=== PATIENT | female | born 1980 | race Caucasian/White ===

== ENCOUNTER 2022-09-23 08:54 | Outpatient (OUT) | payer BC, SELFPAY ==
--- NOTE | 2022-09-23 08:58 | MM_ITS ---
Patient: CHEKO BERGER Exam Date: 09/23/2022 : 1980 Gender:F Ordering : DR. SMITA PATRICK D.O. Admission #: [id number] Family : Order #: [id number] CLICK HERE TO VIEW EXAM RADIOLOGY REPORT PROCEDURE: MM TOMOSYNTHESIS DIAGNOSTIC BI, 09/23/2022, 08:45 US BREAST LT LIMITED, 09/23/2022, 09:31 COMPARISON: MG MAMM DX 3D LT CAD, 03/09/2022. MG MAMM SCREEN 3D CORBIN CAD, 09/04/2021. US BREAST LEFT LIMITED, 03/09/2022. INDICATIONS: Abnormal Mammogram Calculator Name NCI Breast Cancer Risk Assessment Tool 5 Year Breast Cancer Risk 0.60% Lifetime Breast Cancer Risk 8.90% Personal Breast Cancer No Personal Ovarian Cancer No Treatments None Family Cancers Aunt-maternal with breast cancer at age 39; Grandfather-paternal with stomach cancer at age ~73; Grandmother-maternal with multiple myeloma cancer at age 85. LOCATION: [facility] BREAST COMPOSITION: Heterogeneously dense,which may obscure small masses. FINDINGS: DIAGNOSTIC CATEGORY 2--BENIGN FINDING: RIGHT BREAST: No significant suspicious finding. No significant change has occurred. LEFT BREAST: Stable partially circumscribed cysts versus masses within lower-inner quadrant on today's mammogram. Ultrasound evaluation demonstrates a benign-appearing 1.5 cm cyst at the 7 o'clock position 2.8 cm from the nipple and a benign-appearing 0.6 cm cyst 1.2 cm from the nipple. Slight decrease in size of a hypoechoic 0.7 x 0.6 x 0.3 cm slightly heterogeneous area at 8 o'clock position which may represent a collection of small cysts. RECOMMENDATIONS: ROUTINE MAMMOGRAM AND CLINICAL EVALUATION IN 12 MONTHS. PLEASE NOTE: A NORMAL MAMMOGRAM DOES NOT EXCLUDE THE POSSIBILITY OF BREAST CANCER. A CLINICALLY SUSPICIOUS PALPABLE LUMP SHOULD BE BIOPSIED. Dictated by: Jean-Claude Porter M.D. on 09/23/2022 at 10:12 Approved by: Jean-Claude Porter M.D. on 09/23/2022 at 11:21
== END 2022-09-23 08:55 | disposition home or self-care (01) ==
PROVIDERS: PCP Family Medicine; Visit Provider Obstetrics & Gynecology
DX: R92.8 Other abnormal and inconclusive findings on diagnostic imaging of breast (principal); Z80.3 Family history of malignant neoplasm of breast; Z80.0 Family history of malignant neoplasm of digestive organs; Z80.7 Family history of other malignant neoplasms of lymphoid, hematopoietic and related tissues
CPT/HCPCS: 76642; 77066; G0279

== ENCOUNTER 2023-10-19 10:54 | Outpatient (OUT) | payer BC, SELFPAY ==
--- NOTE | 2023-10-19 10:55 | MM_ITS ---
Patient Name: CHEKO BERGER MR#: [id number] : 1980 Exam Date: 10/19/2023 Ordering Doctor: DR. SMITA PATRICK D.O. RADIOLOGY REPORT PROCEDURE: MM TOMOSYNTHESIS SCREENING BI COMPARISON: MG MAMM DX 3D LT CAD, 03/09/2022. MM TOMOSYNTHESIS DIAGNOSTIC BI, 09/23/2022. INDICATIONS: Screening Calculator Name NCI Breast Cancer Risk Assessment Tool 5 Year Breast Cancer Risk 0.60% Lifetime Breast Cancer Risk 8.80% Personal Breast Cancer No Personal Ovarian Cancer No Treatments None Family Cancers Aunt-maternal with breast cancer at age 39; Grandfather-paternal with stomach cancer at age ~73; Grandmother-maternal with multiple myeloma cancer at age 85; Aunt-maternal with stomach cancer at age ~68. LOCATION: [facility] BREAST COMPOSITION: The breasts are heterogeneously dense,which may obscure small masses. FINDINGS: DIAGNOSTIC CATEGORY 2--BENIGN FINDING. NO CHANGE FROM COMPARISON. Scattered benign-appearing calcifications are present. Scattered benign-appearing lymph nodes are present. RIGHT BREAST: No significant suspicious finding. LEFT BREAST: No significant suspicious finding. RECOMMENDATIONS: ROUTINE MAMMOGRAM AND CLINICAL EVALUATION IN 12 MONTHS. PLEASE NOTE: A NORMAL MAMMOGRAM DOES NOT EXCLUDE THE POSSIBILITY OF BREAST CANCER. A CLINICALLY SUSPICIOUS PALPABLE LUMP SHOULD BE BIOPSIED. Dictated by: Сергей Clark MD on 10/19/2023 at 12:41 Approved by: Сергей Clark MD on 10/19/2023 at 12:42
== END 2023-10-19 10:55 | disposition home or self-care (01) ==
LOC: MAMMO 10:54
PROVIDERS: PCP Family Medicine; Visit Provider Obstetrics & Gynecology
DX: Z12.31 Encounter for screening mammogram for malignant neoplasm of breast (principal); Z80.3 Family history of malignant neoplasm of breast; Z80.0 Family history of malignant neoplasm of digestive organs; Z80.7 Family history of other malignant neoplasms of lymphoid, hematopoietic and related tissues
CPT/HCPCS: 77063; 77067

== ENCOUNTER 2024-10-24 13:30 | Outpatient (OUT) | payer BC, SELFPAY ==
--- NOTE | 2024-10-24 13:32 | MM_ITS ---
Patient Name: CHEKO BERGER MR#: [id number] : 1980 Exam Date: 10/24/2024 Ordering Doctor: DR. SMITA PATRICK D.O. RADIOLOGY REPORT PROCEDURE: MM TOMOSYNTHESIS SCREENING BI COMPARISON: MM TOMOSYNTHESIS SCREENING BI, 10/19/2023. MM TOMOSYNTHESIS DIAGNOSTIC BI, 09/23/2022. MG MAMM SCREEN 3D CORBIN CAD, 09/04/2021. INDICATIONS: Screening Calculator Name NCI Breast Cancer Risk Assessment Tool 5 Year Breast Cancer Risk 0.70% Lifetime Breast Cancer Risk 8.70% Personal Breast Cancer No Personal Ovarian Cancer No Treatments None Family Cancers Aunt-maternal with breast cancer at age 39; Grandfather-paternal with stomach cancer at age ~73; Grandmother-maternal with multiple myeloma cancer at age 85; Aunt-maternal with stomach cancer at age ~68. LOCATION: [facility] BREAST COMPOSITION: The breasts are heterogeneously dense, which may obscure small masses. FINDINGS: DIAGNOSTIC CATEGORY 2--BENIGN FINDING. NO CHANGE FROM COMPARISON. LEFT BREAST: No significant suspicious finding. Benign-appearing calcifications are present. RIGHT BREAST: No significant suspicious finding. Benign-appearing calcifications are present. Benign-appearing lymph nodes in noted along the chest wall similar to the prior exam. RECOMMENDATIONS: ROUTINE MAMMOGRAM AND CLINICAL EVALUATION IN 12 MONTHS. Dictated by: Abdulaziz Atkinson MD on 10/24/2024 at 14:43 Approved by: Abdulaziz Atkinson MD on 10/24/2024 at 15:02
--- OUTSIDE RECORDS SUMMARY | 2024-10-24 18:05 | XMS_ITS | CCD ---
Author Organization [facility] Care Team Providers Care Cut Plug Packer Name Role Phone Suha Rowland Unavailable Allyn Franks Unavailable HEIDI MAIN Admitting Unavailable HEIDI MAIN Attending Unavailable JANETT, DR SUHA Muse Primary Care Unavailable JULIO CESAR, DR ANA Chou Consulting Unavailable HEIDI MAIN Consulting Unavailable HEIDI MAIN Admitting Unavailable HEIDI MAIN Attending Unavailable JANETT, DR SUHA Muse Primary Care Unavailable JULIO CESAR, DR ANA Chou Consulting Unavailable JANETT, DR SUHA Muse Consulting Unavailable HEIDI MAIN Consulting Unavailable JANETT, DR SUHA Muse Admitting Unavailable JANETT, DR SUHA Muse Attending Unavailable JANETT, DR SUHA Muse Primary Care Unavailable ART, DR ROSELYN Whitney Consulting Unavailable ROWLAND, DR SUHA Muse Consulting Unavailable ROWLAND, DR SUHA Muse Admitting Unavailable JANETT, DR SUHA Muse Attending Unavailable JANETT, DR SUHA Muse Primary Care Unavailable SUHA ROWLAND Primary Care Physician [phone] Janine KING Attending Unavailable Suha Rowland MD Primary Care Provider [phone] HEIDI MAIN Attending Unavailable HEIDI MAIN Attending Unavailable HEIDI MAIN Referring Unavailable Medications Current Medications Medication Drug Class(es) Dates Sig (Normalized) Sig (Original) azithromycin 250 mg oral tablet (1 source) Macrolide Antimicrobial Start: 06-01-2023 Azithromycin Active 250 MG PO daily 6 5 June 01, 2023 12:00am take 2 today and then 1 for the next 4 days Magnesium (3 sources) Start: 06-01-2023 take 200 mg by mouth once daily Magnesium Active 200 MG PO Daily June 01, 2023 12:00am Magnesium Active Multivitamin preparation (7 sources) Start: 06-01-2023 take 1 tablet by mouth once daily Multivitamin Active 1 TAB PO Daily June 01, 2023 12:00am take 1 tablet by mouth once henrietta y Multivitamin - 1 tablet Orally Once a day Active Completed/Discontinued Medications Medication Drug Class(es) Dates Sig (Normalized) Sig (Original) levonorgestrel 0.913093 mg/hr intrauterine system (14 sources) Progestin, Progestin-containi ng Intrauterine Device Start: 12-20-2023 End: 12-20-2023 Levonorgestrel intrauterine device 52 mg Start: 12-20-2023 End: 12-20-2023 52 mg, Intrauterine, Once, O n 12/20/23 at 0900, For 1 dose Start: 06-01-2023 Levonorgestrel (Mirena) 21 mcg/24 hours (8 yrs) 52 mg intrauterine device Active INTRAUTERI June 01, 2023 12:00am Levonorgestrel ( Mirena, 52 MG,) 20 MCG/DAY intrauterine device Mirena (52 MG) Active Mirena Active predniSONE 20 mg oral tablet (6 sources) Start: 03-26-2022 take 2 tablets by mouth every twenty-four hours predniSONE 20 MG 2 tablets Orally Once a day for 5 days Mar, Not-Taking tiZANidine 4 mg oral tablet (6 sources) Central alpha-2 Adrenergic Agonist Start: 03-17-2022 take 1 tablet by mouth every twelve hours tiZANidine HCl 4 MG 1 tablet as needed Orally bid for 15 days Feb, Not-Taking topiramate 25 mg oral tablet (6 sources) Start: 03-17-2022 take 1 tablet by mouth every twenty-four hours Topamax 25 MG 1 tablet Orally Once a day for 30 day(s) Feb, Not-Taking Problems Active Problems Problem Classification Problem Date Documented Date Episodic/Chronic Adjustment disorders (7 sources) Stress; Translations: [Reaction to severe stress, unspecified] Chronic Allergic reactions (1 source) Allergic contact dermatitis caused by plant material; Translations: [Allergic contact dermatitis due to plants, except food] Onset: 09-07-2022 Episodic Chronic obstructive pulmonary disease and bronchiectasis (2 sources) Bronchitis; Translations: [Bronchitis, not specified as acute or chronic] 06-01-2023 Episodic Contraceptive and procreative management (3 sources) Contraception status; Translations: [Encounter for removal and reinsertion of intrauterine contraceptive device] 12-14-2023 Episodic Other nutritional; endocrine; and metabolic disorders (1 source) Overweight in adulthood with body mass index of 25 or more but less than 30; Translations: [Body mass index (BMI) 26.0-26.9, adult] Onset: 09-07-2022 Episodic Pneumonia (except that caused by tuberculosis or sexually transmitted disease) (6 sources) Pneumonia due to Severe acute respiratory syndrome coronavirus; Translations: [Pneumonia due to Coronavirus disease 2019] Episodic Residual codes; unclassified (1 source) Family history of malignant neoplasm of breast; Translations: [FAMILY HX MALIG NEOPLASM OF BREAST] Onset: 03-15-2022 Episodic Residual codes; unclassified (1 source) Family history of malignant neoplasm of digestive organs; Translations: [FAM HX MALIG NEOPLASM DIGESTIV ORGN] Onset: 03-15-2022 Episodic Residual codes; unclassified (1 source) Family history of other malignant neoplasms of lymphoid, hematopoietic and related tissues; Translations: [FAM HX OTH MAL CINTHIA LYMPH HEMATPOETC] Onset: 03-15-2022 Episodic Spondylosis; intervertebral disc disorders; other back problems (5 sources) Cervical disc disorder; Translations: [Cervical disc disorder, unspecified, unspecified cervical region] Chronic Spondylosis; intervertebral disc disorders; other back problems (6 sources) Radiculopathy, cervical region; Translations: [RADICULOPATHY CERVICAL REGION] Onset: 05-03-2022 Episodic Past or Other Problems Problem Classification Problem Date Documented Da te Episodic/Chronic Nonmalignant breast conditions (1 source) Unspecified lump in the left breast, lower inner quadrant; Translations: [UNS LUMP IN LT BREAST LW INNER QUAD] Onset: 09-07-2021 Episodic Other screening for suspected conditions (not mental disorders or infectious disease) (14 sources) Mammography abnormal; Translations: [Other abnormal and inconclusive findings on diagnostic imaging of breast] Onset: 03-09-2022 Episodic Viral infection (6 sources) Disease caused by 2019-nCoV; Translations: [COVID-19] Results Test Name Value Interpretation Reference Range Facil ity HCG ( test) Ql (U)o n 12-20-2023 Preg Test, Ur Negative Negative [facility] I[facility] Insertionon 12-20-2023 Ashu Madrid 12/20/2023 9:10 AM IUD Insertion Performed by: Heidi Main DO Authorized by: Heidi Main DO Procedure: IUD removal and insertion Consent obtained by patient, parent, or legal power of trust and estates attorney - including discussion of procedure risks and benefits, patient questions answered, and patient education provided: yes Reason for removal: patient request Strings visualized: yes Cervix cleaned with: iodopovidone IUD grasped by forceps: yes IUD removed: yes Removed without complications: yes IUD intact: yes Pelvic exam performed: yes Speculum placed in vagina: yes Cervix cleaned and prepped: yes Tenaculum/Allis/Ring Forceps applied to cervix: yes Anesthesia used: no Uterus sound depth (cm): 6.5 IUD inserted without complications: yes OSM: 52 mg Levonorgestrel 20 MCG/DAY Strings trimmed to (cm): 4 Patient tolerated procedure well: yes Intended removal date: 8 years [facility] 09-08-2022 Consent [id number] Normal [facility] Family Medicine Office/Clini c Noteon 09-07-2022 Family Medicine Office/Clinic Note Chief Complaint HOOP CUTTER poison yvonne HPI Staff Pt 42 yo female presents with poison yvonne Symptom onset: 2 days ago Location: inner thighs, forehead, neck Characteristics at beginning: red bumps Characteristics now :blistering Itch/Pain: itchy Treatments: vinegar, cortisone spray, anti itch cream Ever had in past?: yes Change in soaps, detergents, exposures:no Allergies:no Fever: no History of Present Illness I have reviewed and verified the staff HPI to be accurate for this encounter. Patient presents in office for concern of poison yvonne rash. Rash x2 days. Patient states rash is present to inner thighs, forehead, neck. Rash is pruritic. Complains of blistering and red bumps. Has tried topical vinegar, cortisone spray, anti-itch cream with minimal improvement. Denies changes to lotions, soaps, medications. Denies others in household with similar rash. Denies fever. Was recently doing outdoor yard work. Review of Systems PHQ Score Initial Depression Screen Score: 0 Physical Exam Vitals & Measurements T: 36.8 ?C(Oral) HR: 65(Peripheral) BP: 120/82 SpO2: 97% HT: 62 in HT: 158 cm WT: 66.4 kg WT: 146.08 lb BMI: 26.6 General: Well developed, well nourished, in no acute distress Eyes: No current periorbital edema Lungs: Normal respiratory effort and clear to auscultation Cardio: regular rate and rhythm, no murmur Skin: Patient with erythematous maculopapular rash with some areas of blistering forming present to right side of neck, behind both the ears, left forehead, right upper cheek, bilateral inner thighs, left forearm. No active drainage. No significant edema or induration currently. Mental Status: Alert and oriented x3. Normal mood and affect Assessment/Plan 1. Contact dermatitis due to poison yvonne (L23.7: Allergic contact dermatitis due to plants, except food) Given exam, will treat with kenalog IM. Discussed typical duration of contact dermatitis anywhere from 7-21 days typically. Advised steroids of any kind do not make rash completely resolve but help with itching and inflammation. May continue topical calamine or similar. Follow up with PCP if not improving over next 10 days or significantly changing appearance. Patient and/or parent verbalized understanding of treatment plan. Ordered: triamcinolone, 80 mg = 2 mL, Injection, IntraMuscular, Once, Stop date 09/07/22 18:59:00 EDT, Routine, Start date 09/07/22 18:59:00 EDT, 09/07/22 18:59:00 EDT 2. BMI 26.0-26.9,adult (Z68.26: Body mass index [BMI] 26.0-26.9, adult) The standard range for ages 18 and older is >=18.5 and < 25 kg/m2. Your BMI today was above this range, this falls in the overweight to obese category and there are medical benefits to weight loss. We can offer counselling, referral, and/or medical support in addressing this problem. Your BMI and weight management will be followed at subsequent visits. Follow-up With When Contact Information SUHA ROWLAND MD, [address] [address]- Additional Instructions: Patient Education Contact Dermatitis, Ferh-xq-Orcp BMI for Adults Problem List/Past Medical History Ongoing No chronic problems Historical No qualifying data Medications No active medications Allergies No Known Allergies No Known Medication Allergies Social History Tobacco - Denies Tobacco Use, 09/07/2022 Never (less than 100 in lifetime) Tobacco Use:. Never Smokeless Tobacco Use:., 09/07/2022 Immunizations Vaccine Date Status Comments SARS-CoV-2 mRNA (tojean paul 5y-11y) vac - Not Given Postpone due to refusal Normal [facility] Comment on above: Result Comment: Elec tronically Signed By: Janine KING CNP\.demetri\Date and Time Signed: 09/07/22 19:19 EDT Patient Educationon 09-08-19 Patient Education Dermatology Contact Dermatitis Dermatitis is redness, soreness, and swelling (inflammation) of the skin. Contact dermatitis is a reaction to something that touches the skin. There are two types of contact dermatitis: ? Irritant contact dermatitis. This happens when something bothers (irritates) your skin, like soap. ? Allergic contact dermatitis. This is caused when you are exposed to something that you are allergic to, such as poison yvonne. What are the causes? ? Common causes of irritant contact dermatitis include: ? Makeup. ? Soaps. ? Detergents. ? Bleaches. ? Acids. ? Metals, such as nickel. ? Common causes of allergic contact dermatitis include: ? Plants. ? Chemicals. ? Jewelry. ? Latex. ? Medicines. ? Preservatives in products, such as clothing. What increases the risk? ? Having a job that exposes you to things that bother your skin. ? Having asthma or eczema. What are the signs or symptoms? Symptoms may happen anywhere the irritant has touched your skin. Symptoms include: ? Dry or flaky skin. ? Redness. ? Cracks. ? Itching. ? Pain or a burning feeling. ? Blisters. ? Blood or clear fluid draining from skin cracks. With allergic contact dermatitis, swelling may occur. This may happen in places such as the eyelids, mouth, or genitals. How is this treated? ? This condition is treated by checking for the cause of the reaction and protecting your skin. Treatment may also include: ? Steroid creams, ointments, or medicines. ? Antibiotic medicines or other ointments, if you have a skin infection. ? Lotion or medicines to help with itching. ? A bandage (dressing). Follow these instructions at home: Skin care ? Moisturize your skin as needed. ? Put cool cloths on your skin. ? Put a baking soda paste on your skin. Stir water into baking soda until it looks like a paste. ? Do not scratch your skin. ? Avoid having things rub up against your skin. ? Avoid the use of soaps, perfumes, and dyes. Medicines ? Take or apply wdnz-ikb-dladrae and prescription medicines only as told by your doctor. ? If you were prescribed an antibiotic medicine, take or apply it as told by your doctor. Do not stop using it even if your condition starts to get better. Bathing ? Take a bath with: ? Epsom salts. ? Baking soda. ? Colloidal oatmeal. ? Bathe less often. ? Bathe in warm water. Avoid using hot water. Bandage care ? If you were given a bandage, change it as told by your doctor. ? Wash your hands with soap and water before and after you change your bandage. If soap and water are not available, use hand specialist physicians. General instructions ? Avoid the things that caused your reaction. If you do not know what caused it, keep a journal. Write down: ? What you eat. ? What skin products you use. ? What you drink. ? What you wear in the area that has symptoms. This includes jewelry. ? Check the affected areas every day for signs of infection. Check for: ? More redness, swelling, or pain. ? More fluid or blood. ? Warmth. ? Pus or a bad smell. ? Keep all follow-up visits as told by your doctor. This is important. Contact a doctor if: ? You do not get better with treatment. ? Your condition gets worse. ? You have signs of infection, such as: ? More swelling. ? Tenderness. ? More redness. ? Soreness. ? Warmth. ? You have a fever. ? You have new symptoms. Get help right away if: ? You have a very bad headache. ? You have neck pain. ? Your neck is stiff. ? You throw up (vomit). ? You feel very sleepy. ? You see red streaks coming from the area. ? Your bone or joint near the area hurts after the skin has healed. ? The area turns darker. ? You have trouble breathing. Summary ? Dermatitis is redness, soreness, and swelling of the skin. ? Symptoms may occur where the irritant has touched you. ? Treatment may include medicines and skin care. ? If you do not know what caused your reaction, keep a journal. ? Contact a doctor if your condition gets worse or you have signs of infection. This information is not intended to replace advice given to you by your health care provider. Make sure you discuss any questions you have with your health care provider. Document Revised: 11/23/2021 Document Reviewed: 11/23/2021 [employer] Patient Education ? 2022 [employer] Nutrition BMI for Adults What is BMI? Body mass index (BMI) is a number that is calculated from a person's weight and height. BMI can help estimate how much of a person's weight is composed of fat. BMI does not measure body fat directly. Rather, it is an alternative to procedures that directly measure body fat, which can be difficult and expensive. BMI can help identify people who may be at higher risk for certain medical problems. What are BMI measurements used for? BMI is used as a screening tool to identify possible weight problems. It helps determine w (more content not included)... Normal [facility] CON EXAMINATION: MRI [facility] CON HISTORY: Cervical radiculopathy COMPARISON: No relevant comparison available. TECHNIQUE: A variety of imaging planes and parameters were utilized for visualization of suspected pathology. FINDINGS: CRANIOCERVICAL AREA: Normal foramen magnum with no Chiari malformation. PARASPINAL AREA: Normal with no visible mass. BONES: Straightening of normal lordotic curvature extending from C2 through C6. CORD: Normal caliber, contour, and signal intensity. CERVICAL DISC LEVELS: C2-C3: Early degenerative disc disease is present without focal protrusion or neural impingement. C3-C4: Early degenerative disc disease is present without focal protrusion or neural impingement. C4-C5: Early degenerative disc disease is present without focal protrusion or neural impingement. C5-C6: Mild central canal narrowing. Moderate-marked right foramen and mild left foramen narrowing. Moderate diffuse disc bulging with broad-based protrusion projecting 3 mm into right foramen. No significant disc height reduction or degenerative facet arthropathy. C6-C7: Early degenerative disc disease is present without focal protrusion or neural impingement. C7-T1:. No significant disc/facet abnormality, spinal stenosis, or foraminal stenosis. IMPRESSION: 1. Moderate or slightly greater narrowing of the C5-6 right neuroforamen secondary to mild diffuse disc bulging and prominent right foraminal disc herniation of the protrusion type. 2. Straightening of normal lordotic curvature, positioning versus muscle spasm. Electronically authenticated by: ROSELYN CORDOVA Date: 2022-05-03 12:44 Normal [facility] MRI [facility] [employer] Other MG MAMM DX 3D LT CADon 03-09 MG MAMM DX 3D LT CAD Patient: CHEKO BERGER Exam Date: 03/09/2022 : 1980 Gender:F Ordering : DR. HEIDI MAIN D.O. Admission #: [id number] Family : Order #: [id number] CLICK HERE TO VIEW EXAM RADIOLOGY REPORT PROCEDURE: MAMMOGRAM DIAGNOSTIC 3D LEFT CAD, 03/09/2022, 10:08 ULTRASOUND BREAST LEFT LIMITED, 03/09/2022, 10:37 COMPARISON: US BREAST LEFT LIMITED, 09/04/2021. MG MAMM SCREEN 3D CORBIN CAD, 09/04/2021. INDICATIONS: Abnormal findings on diagnostic imaging of breast Calculator Name NCI Breast Cancer Risk Assessment Tool 5 Year Breast Cancer Risk 0.50% Lifetime Breast Cancer Risk 9.00% Personal Breast Cancer No Personal Ovarian Cancer No Treatments None Family Cancers Aunt-maternal with breast cancer at age 39; Grandfather-paternal with stomach cancer at age 73; Grandmother-maternal with multiple myeloma cancer at age 85. LOCATION: [facility] BREAST COMPOSITION: Heterogeneously dense, which may obscure small masses. FINDINGS: DIAGNOSTIC CATEGORY 3--PROBABLY BENIGN FINDING. THE FOLLOWING FINDING(S) HAS A HIGH PROBABILITY OF A BENIGN ETIOLOGY: The left breast is stable in size and overall fibroglandular configuration with stable scattered nodules. No new areas of suspicious microcalcifications, architectural distortion or mass. Ultrasound demonstrates 2 areas of anechoic echogenicity in the left breast at the 7 o'clock position having imperceptible borders and increased acoustic through transmission consistent with simple cysts. A lesion at the 8 o'clock position is mildly lobular with internal echoes but no definite vascularity measuring 8.3 x 4.3 x 7.4 mm. This is stable from the prior exam. Findings were discussed with the patient and 1 additional follow-up mammogram and ultrasound in 6 months to ensure stability at 1 year was recommended. The patient will be due a mammogram of the right breast at that time RECOMMENDATIONS: SHORT TERM FOLLOW-UP DIAGNOSTIC MAMMOGRAM BILATERAL BREASTS IN 6 MONTHS. SHORT TERM FOLLOW-UP ULTRASOUND LEFT BREAST IN 6 MONTHS. PLEASE NOTE: A NORMAL MAMMOGRAM DOES NOT EXCLUDE THE POSSIBILITY OF BREAST CANCER. A CLINICALLY SUSPICIOUS PALPABLE LUMP SHOULD BE BIOPSIED. Dictated by: Ana Clark MD on 03/09/2022 at 10:53 Approved by: Ana Clark MD on 03/09/2022 at 11:01 Normal [facility] US BREAST LEFT LIMITEDon US BREAST LEFT LIMITED Patient: CHEKO BERGER Exam Date: 03/09/2022 : 1980 Gender:F Ordering : DR. HEIDI MAIN D.O. Admission #: [id number] Family : Order #: [id number] CLICK HERE TO VIEW EXAM RADIOLOGY REPORT PROCEDURE: MAMMOGRAM DIAGNOSTIC 3D LEFT CAD, 03/09/2022, 10:08 ULTRASOUND BREAST LEFT LIMITED, 03/09/2022, 10:37 COMPARISON: US BREAST LEFT LIMITED, 09/04/2021. MG MAMM SCREEN 3D CORBIN CAD, 09/04/2021. INDICATIONS: Abnormal findings on diagnostic imaging of breast Calculator Name NCI Breast Cancer Risk Assessment Tool 5 Year Breast Cancer Risk 0.50% Lifetime Breast Cancer Risk 9.00% Personal Breast Cancer No Personal Ovarian Cancer No Treatments None Family Cancers Aunt-maternal with breast cancer at age 39; Grandfather-paternal with stomach cancer at age 73; Grandmother-maternal with multiple myeloma cancer at age 85. LOCATION: [facility] BREAST COMPOSITION: Heterogeneously dense, which may obscure small masses. FINDINGS: DIAGNOSTIC CATEGORY 3--PROBABLY BENIGN FINDING. THE FOLLOWING FINDING(S) HAS A HIGH PROBABILITY OF A BENIGN ETIOLOGY: The left breast is stable in size and overall fibroglandular configuration with stable scattered nodules. No new areas of suspicious microcalcifications, architectural distortion or mass. Ultrasound demonstrates 2 areas of anechoic echogenicity in the left breast at the 7 o'clock position having imperceptible borders and increased acoustic through transmission consistent with simple cysts. A lesion at the 8 o'clock position is mildly lobular with internal echoes but no definite vascularity measuring 8.3 x 4.3 x 7.4 mm. This is stable from the prior exam. Findings were discussed with the patient and 1 additional follow-up mammogram and ultrasound in 6 months to ensure stability at 1 year was recommended. The patient will be due a mammogram of the right breast at that time RECOMMENDATIONS: SHORT TERM FOLLOW-UP DIAGNOSTIC MAMMOGRAM BILATERAL BREASTS IN 6 MONTHS. SHORT TERM FOLLOW-UP ULTRASOUND LEFT BREAST IN 6 MONTHS. PLEASE NOTE: A NORMAL MAMMOGRAM DOES NOT EXCLUDE THE POSSIBILITY OF BREAST CANCER. A CLINICALLY SUSPICIOUS PALPABLE LUMP SHOULD BE BIOPSIED. Dictated by: Ana Clark MD on 03/09/2022 at 10:53 Approved by: Ana Clark MD on 03/09/2022 at 11:01 Normal [facility] MAMM SCREEN 3D CORBIN CADon 09-04-2021 MG MAMM SCREEN 3D CORBIN CAD Patient: CHEKO BERGER Exam Date: 09/04/2021 : 1980 Gender:F Ordering : DR. HEIDI MAIN D.O. Admission #: [id number] Family : DR SUHA ROWLAND M.D. Order #: [id number] CLICK HERE TO VIEW EXAM RADIOLOGY REPORT PROCEDURE: MAMMOGRAM SCREENING 3D BILATERAL CAD COMPARISON: None. INDICATIONS: Screening mammography Calculator Name NCI Breast Cancer Risk Assessment Tool 5 Year Breast Cancer Risk 0.50% Lifetime Breast Cancer Risk 9.00% Personal Breast Cancer No Personal Ovarian Cancer No Treatments None Family Cancers Aunt-maternal with breast cancer at age 39; Grandfather-paternal with stomach cancer at age 73; Grandmother-maternal with multiple myeloma cancer at age 85. LOCATION: [facility] BREAST COMPOSITION: Heterogeneously dense,which may obscure small masses. FINDINGS: DIAGNOSTIC CATEGORY 0--INCOMPLETE: NEED ADDITIONAL IMAGING EVALUATION. Scattered benign-appearing calcifications are present. Scattered benign-appearing lymph nodes are present. RIGHT BREAST: No significant suspicious finding. LEFT BREAST: Focal lobular 1.6 x 1.2 x 1.1 cm nodule lower inner quadrant, posterior breast. Ultrasound follow-up recommended RECOMMENDATIONS: ULTRASOUND: LEFT BREAST PLEASE NOTE: A NORMAL MAMMOGRAM DOES NOT EXCLUDE THE POSSIBILITY OF BREAST CANCER. A CLINICALLY SUSPICIOUS PALPABLE LUMP SHOULD BE BIOPSIED. Dictated by: Ana Clark MD on 09/04/2021 at 10:50 Approved by: Ana Clark MD on 09/04/2021 at 11:29 Normal [facility] US BREAST LEFT LIMITEDon US BREAST LEFT LIMITED Patient: CHEKO BERGER Exam Date: 09/04/2021 : 1980 Gender:F Ordering : DR. HEIDI MAIN D.O. Admission #: [id number] Family : DR SUHA ROWLAND M.D. Order #: [id number] CLICK HERE TO VIEW EXAM RADIOLOGY REPORT PROCEDURE: ULTRASOUND BREAST LEFT LIMITED COMPARISON: MG MAMM SCREEN 3D CORBIN CAD, 09/04/2021. INDICATIONS: Mammography abnormal TECHNIQUE: Breast ultrasound was performed, with evaluation focusing only on specific areas of concern. FINDINGS: DIAGNOSTIC CATEGORY 3--PROBABLY BENIGN FINDING. THE FOLLOWING FINDING(S) HAS A HIGH PROBABILITY OF A BENIGN ETIOLOGY: Ultrasound of the left breast was performed demonstrating 3 cystic areas : Lesion 1: 7 o'clock position measures 1.2 x 0.6 x 1.1 cm in size with mildly lobular contours and increased acoustic through transmission. Simple cyst Lesion 2: 8 o'clock position. 0.9 x 0.4 x 0.8 cm. Mild scattered internal echoes. Complex cyst favored Lesion 3: 7 o'clock. 1.1 by 0.7 x 0.6 cm. Mildly lobular contour. No internal echoes. Increased acoustic through transmission, simple cyst The ultrasound lesions correspond in position but not completely in size to the mammographic findings. Six-month follow-up mammogram and ultrasound is recommended to document stability. RECOMMENDATIONS: SHORT TERM FOLLOW-UP ULTRASOUND LEFT BREAST IN 6 MONTHS. SHORT TERM FOLLOW-UP DIAGNOSTIC MAMMOGRAM LEFT BREAST IN 6 MONTHS. PLEASE NOTE: A NORMAL ULTRASOUND EXAMINATION DOES NOT EXCLUDE THE POSSIBILITY OF BREAST CANCER. A CLINICALLY SUSPICIOUS PALPABLE LUMP SHOULD BE BIOPSIED. Dictated by: Ana Clark MD on 09/04/2021 at 12:04 Approved by: Ana Clark MD on 09/04/2021 at 12:08 Normal [facility] Vital Signs Date Time Vital Sign Value Performing Clinician Facility 01-25-2024 14:10-0500 Body mass index (BMI) [Ratio] 21.3 kg/m2 Heidi Rinkes DO Work Phone: [facility] 01-25-2024 14:10-0500 Body weight 58.06 kg Heidi Rinkes DO Work Phone: [facility] 01-25-2024 14:10-0500 Diastolic blood pressure 70 mm[Hg] Heidi Rinkes DO Work Phone: [facility] 01-25-2024 14:10-0500 Systolic blood pressure 120 mm[Hg] Heidi Rinkes DO Work Phone: [facility] 12-20-2023 08:53-0400 Body mass index (BMI) [Ratio] 21.3 kg/m2 Heidi Rinkes DO Work Phone: [facility] 12-20-2023 08:53-0400 Body weight 58.06 kg Heidi Rinkes DO Work Phone: [facility] 12-20-2023 08:53-0400 Diastolic blood pressure 80 mm[Hg] Heidi Rinkes DO Work Phone: [facility] 12-20-2023 08:53-0400 Systolic blood pressure 120 mm[Hg] Heidi Rinkes DO Work Phone: [facility] 10-27-2023 13:03-0400 Body height 165.1 cm Heidi Rinkes DO Work Phone: [facility] 10-27-2023 13:03-0400 Body mass index (BMI) [Ratio] 21.3 kg/m2 Heidi Rinkes DO Work Phone: [facility] 10-27-2023 13:03-0400 Body weight 58.06 kg Heidi Rinkes DO Work Phone: [facility] 10-27-2023 13:03-0400 Diastolic blood pressure 70 mm[Hg] Heidi Rinkes DO Work Phone: [facility] 10-27-2023 13:03-0400 Systolic blood pressure 130 mm[Hg] Heidi Rinkes DO Work Phone: [facility] 06-01-2023 13:02-0400 Body height 160.02 cm [facility] 06-01-2023 13:02-0400 Body mass index (BMI) [Ratio] 26.4 kg/m2 [facility] 06-01-2023 13:02-0400 Body weight 67.58 kg [facility] 06-01-2023 13:02-0400 Diastolic blood pressure 66 mm[Hg] [facility] 06-01-2023 13:02-0400 Heart rate 86 /min [facility] 06-01-2023 13:02-0400 SaO2% (BldA) [Mass fraction] 98 % [facility] 06-01-2023 13:02-0400 Systolic blood pressure 110 mm[Hg] [facility] 09-07-2022 18:39-0400 Blood Pressure Location Janine KING [facility] 09-07-2022 18:39-0400 Body temperature 98.24 [degF] Janine KING [facility] 09-07-2022 18:39-0400 Diastolic blood pressure 82 mm[Hg] Janine KING [facility] 09-07-2022 18:39-0400 Heart rate 65 /min Janine KING [facility] 09-07-2022 18:39-0400 SaO2% (BldA) [Mass fraction] 97 % Janine KING [facility] 09-07-2022 18:39-0400 Systolic blood pressure 120 mm[Hg] Janine KING [facility] 03-17-2022 12:30-0500 Body height 160.02 cm Suha Rowland Other [facility] Other 03-17-2022 12:30-0500 Body mass index (BMI) [Ratio] 26.39 kg/m2 Suha Rowland Other [facility] Other 03-17-2022 12:30-0500 Body weight 67.59 kg Suha Rowland Other [facility] Other 03-17-2022 12:30-0500 Diastolic blood pressure 76 mm[Hg] Suha Rowland Other [facility] Other 03-17-2022 12:30-0500 Systolic blood pressure 122 mm[Hg] Suha Rowland Other [facility] Other Encounters Encounter Date Encounter Type Care Provider Facility Start: 01-25-2024 End: 01-25-2024 Office outpatient visit 15 minutes Heidi Main DO Work Phone: [facility] Comment on above: Intrauterine device surveillance Start: 12-20-2023 End: 12-20-2023 Patient encounter procedure Heidi Main DO Work Phone: [facility] Comment on above: Encounter for IUD re moval and reinsertion Start: 12-20-2023 End: 12-20-2023 ambulatory [facility] Not Available Start: 10-27-2023 End: 10-27-2023 Patient encounter status Heidi Main DO Work Phone: [facility] Start: 10-27-2023 End: 10-27-2023 Periodic preventive med est patient 40-64yrs Heidi Main DO Work Phone: [facility] Comment on above: Encounter for gyneco logical examination without abnormal finding; Screening for malignant neoplasm of cervix; Encounter for screening mammogram for breast cancer Start: 10-27-2023 End: 10-27-2023 ambulatory [facility] Not Available Start: 06-01-2023 End: 06-01-2023 ambulatory [facility] Work Phone: Start: 06-01-2023 End: 06-01-2023 Patient encounter procedure [facility] Work Phone: Start: 09-08-2022 End: 09-08-2022 ambulatory Suha Rowland Other [facility] Other Start: 09-08-2022 Telephone encounter Suha Rowland [facility] Start: 09-07-2022 End: 09-08-2022 ambulatory Janine KING Facility:[facility] Start: 09-07-2022 End: 09-07-2022 Patient encounter procedure Janine KING [facility] Start: 05-20-2022 End: 05-20-2022 ambulatory Allyn Franks Other [facility] Other Start: 05-20-2022 Telephone encounter Allyn Morales [employer] Start: 05-03-2022 Telephone encounter Suha Rowland [facility] Start: 05-03-2022 End: 05-04-[address] SUHA ROWLAND [facility] Other Start: 04-27-2022 End: 04-27-2022 ambulatory Suha Rowland Other [facility] Other Start: 04-27-2022 Telephone encounter Suha Rowland [facility] Start: 03-26-2022 End: 03-26-2022 ambulatory Suha Rowland Other [facility] Other Start: 03-26-2022 Telephone encounter Suha Rowland [facility] Start: 03-18-2022 End: 04-27-[address] SUHA ROWLAND Facility: Start: 03-17-2022 End: 03-17-2022 ambulatory Suha Rowland Other [facility] Other Start: 03-17-2022 Office outpatient ne w 30 minutes Suha Janett [facility] Start: 03-09-2022 End: 03-10-2022 ambulatory [facility] Facility:[facility] Start: 09-04-2021 End: 09-05-2021 ambulatory [facility] Facility:[facility] Procedures Date Procedure Procedure Detail Performing Clinician Start: 12-20-2023 IUD INSERTION Heidi Main DO Work Phone: Start: 12-20-2023 Urine test visual color cmprsn meths Heidi Main DO Work Phone: Plan of Treatment Date Care Activity Detail Author Start: 11-01-2024 End: 11-01-2024 Patient encounter procedure 11/01/2024 2:00 PM EDT Office Visit [facility] [address] [place] [address] Heidi Main, DO [address] [place] [address] [facility] Start: 10-26-2024 End: 12-26-2024 DBT Breast - bilateral screening Bilateral screening mammogram with tomosynthesis Imaging Routine Encounter for screening mammogram for breast cancer Expected: 10/26/2024, Expires: 12/26/2024 [facility] Comment on above: Expected: 10/26/2024 , Expires: 12/26/2024 Start: 01-25-2024 End: 01-25-2024 Patient encounter procedure 01/25/2024 2:15 PM EST Office Visit [facility] [address] [place] [id number] Heidi Main, DO [address] [place] [address] [facility] SENDOUT TEST MISCELLANEOUS [facility] SENDOUT TEST MISCELLANEOUS [facility] Lab Routine Screening for malignant neoplasm of cervix Or[facility]: [facility]27/[facility] Work Phone: Comment on above: Ordered: 10/27/2023 Immunizations Immunization Date Immunization Notes Care Provider Chica franco NEGATED: Highlighted row has not occurred!09-07-2022 SARS-CoV-2 mRNA (tofuadnameran 5y-11y) vaccine Janine FERNANDO [facility] Payers Date Payer Category Payer Blue Cross Blue Shield BCBS Memb er Subscriber Plan / Payer (Effective 2021-Present) Name: Teresa Cheko Adonis Relation to Subscriber: Spouse Name: Teresa Javier Adonis Date of : 1979 (Work) Address: [address] [place] [address] Payer ID: Not on file Type: Not on file Address: [address] [place] [id number] 2021 Unknown BCBS BCBS xxxxxx [id number] 2021-Present [phone] [address] [place] [id number] 1980 Unknown [id number] 1980 Unknown [id number] 1980 Unknown [id number] 1980 Unknown [id number] 1980 Unknown [id number] 1980 Unknown [id number] 1980 Unknown [id number] 1959 [facility] [place] [id number] Social History Date Type Detail Facility Unknown if ever smoked [facility] Other Start: 10-26-2023 Sex Assigned At F [facility] Start: 09-07-2022 End: 10-20-2022 Tobacco smoking status Never smoked tobacco (finding) [facility] Tobacco smoking status Never [facility] Start: 1980 Sex Assigned At Female F [facility] Start: 10-27-2023 End: 12-20-2023 Alcoholic beverage intake Lifetime non-drinker (finding) [facility] Start: 10-26-2023 History of Social function [facility] Start: 10-20-2022 Alcohol Comment Caffeine intak e: 1-2 cups per day coffee [facility] Start: 1980 Sex assigned at Not on file N [facility] Functional Status Date Assessment Result Facility 09-07-2022 Functional Status N/A [facility] Clinical Notes 03-17-2022 to 01-25-2024 Heidi Main, DO - 01/25/2024 2:15 PM ESTHeidi Main, DO - 12/20/2023 9:00 AM EDTHeidi Main, DO - 10/27/2023 1:00 PM EDT Note Date & Type Note Facility 01-25-2024 History of Present illness Narrative Images from the original note were not included. Heidi Main D.O. Obstetrics and Gynecology Patient: Cheko Berger : 1980 (43 y.o.) Exam Date: 01/25/2024 Reason for Visit - Chief Complaint Patient presents with Follow-up Pt presents for IUD check. Mirena replacement 12/20/23. Denies vaginal bleeding/spotting. Denies bowel/bladder concerns. Denies pelvic pain/cramping. Denies problems with intercourse. Visit Vitals BP 120/70 Wt 128 lb BMI 21.30 kg/m Smoking Status Never BSA 1.63 m No Known Allergies History of Present Illness, Associated Treatments and Results - OB History Para Term AB Living 2 2 2 0 0 2 SAB IAB Ectopic Multiple Live Births 0 0 0 0 2 # Outcome Date GA Lbr Estevan/2nd Weight Sex Type Anes PTL Lv 2 Term 1 Term Obstetric Comments Pap smear 10/21/22 wnl, Mammogram 10/19/23 wnl @ [facility] Review of Systems - Const: Denies appetite change, fever, chills. Allergy: Denies medication reaction. Ocular: Denies visual acuity change. ENT: Denies hearing change. Endoc: Denies weight loss. Resp: Denies dyspnoea, wheezing. Cardiac: Denies angina, palpitations. GI: Denies nausea, vomiting. Haem: Denies bleeding. : Denies incontinence. MSK: Denies arthralgias, joint oedema. Derm: Denies rash, hair loss. Neuro: Denies ataxia, tremor. Also see HPI for elements of ROS documented therein and for details of positive findings, which shall supersede the foregoing. Medication Documentation Review Audit Reviewed by Ana Deal MA (Die Engraving Supervisor) on 01/25/24 at 1410 Medication Order Taking? Sig Documenting Provider Last Dose Status Levonorgestrel (Mirena, 52 MG,) 20 MCG/DAY intrauterine device [id number] Mirena (52 MG) Historical Provider, Active History reviewed. No pertinent past medical history. Past Surgical History: Procedure Laterality Date INTRAUTERINE DEVICE INSERTION 2016 Mirena INTRAUTERINE DEVICE INSERTION 12/20/2023 MIrena IUD removal and reinsertion. VAGINAL DELIVERY x2 Family History Problem Relation Name Age of Onset Heart disease Mother Physical Exam - General appearance, mentation, extraocular movements, facial strength and movement, hearing, upper and lower extremity strength and tone, sensation to gross testing, coordination, and gait are normal or at baseline unless noted below. General: Alert, cooperative, no distress, appears stated age Head: Normocephalic, without obvious abnormality, atraumatic Eyes: sclera anicteric Ears: no obvious hearing deficit Skin: Warm and dry Heart: Regular rate Lungs: Respirations unlabored Abdomen: Soft, non-tender, no masses, no organomegaly Extremities normal, atraumatic, no cyanosis or edema FEMALE GENITOURINARY:normal vaginal mucosa, cervix absent of lesions, nontender, IUD strings visible, uterus AV, mobile, ovaries nonpalpable and non tender Diagnoses and all orders for this visit: Intrauterine device surveillance IUD strings visualized- patient doing well with the IUD. The patient is to contact the office with any heavy vaginal bleeding/pelvic pain/foul smelling vaginal discharge/fever. She is to return as needed or for her annual exam. ICD-10-CM 1. Intrauterine device surveillance Z30.431 documented in this encounter [facility] 12-20-2023 History of Present illness Narrative Associated Order(s): IUD Insertion Post-Procedure Diagnose(s): Encounter for IUD removal and reinsertion Images from the original note were not included. Heidi Main D.O. Obstetrics and Gynecology Patient: Cheko Berger : 1980 (43 y.o.) Exam Date: 12/20/2023 Reason for Visit - Chief Complaint Patient presents with Procedure Pt presents for Mirena IUD replacement. Consents signed, UPT collected-Neg, Denies iodine allergy. Pt took ibuprofen. Visit Vitals BP 120/80 Wt 128 lb BMI 21.30 kg/m Smoking Status Never BSA 1.63 m No Known Allergies History of Present Illness, Associated Treatments and Results - OB History Para Term AB Living 2 2 2 0 0 2 SAB IAB Ectopic Multiple Live Births 0 0 0 0 2 # Outcome Date GA Lbr Estevan/2nd Weight Sex Type Anes PTL Lv 2 Term 1 Term Obstetric Comments Pap smear 10/21/22 wn, Mammogram 10/19/23 wnl @ [facility] Review of Systems - Const: Denies appetite change, fever, chills. Allergy: Denies medication reaction. Ocular: Denies visual acuity change. ENT: Denies hearing change. Endoc: Denies weight loss. Resp: Denies dyspnoea, wheezing. Cardiac: Denies angina, palpitations. GI: Denies nausea, vomiting. Haem: Denies bleeding. : Denies incontinence. MSK: Denies arthralgias, joint oedema. Derm: Denies rash, hair loss. Neuro: Denies ataxia, tremor. Also see HPI for elements of ROS documented therein and for details of positive findings, which shall supersede the foregoing. Medication Documentation Review Audit Reviewed by Ana Deal MA (Die Engraving Supervisor) on 12/20/23 at 0851 Medication Order Taking? Sig Documenting Provider Last Dose Status Levonorgestrel (Mirena, 52 MG,) 20 MCG/DAY intrauterine device [id number] Mirena (52 MG) Historical Provider, Active Levonorgestrel intrauterine device 52 mg [id number] Heidi Main DO Active History reviewed. No pertinent past medical history. Past Surgical History: Procedure Laterality Date INTRAUTERINE DEVICE INSERTION 2015 Mirena INTRAUTERINE DEVICE INSERTION 12/20/2023 MIrena IUD removal and reinsertion. VAGINAL DELIVERY x2 Family History Problem Relation Name Age of Onset Heart disease Mother Physical Exam - General appearance, mentation, extraocular movements, facial strength and movement, hearing, upper and lower extremity strength and tone, sensation to gross testing, coordination, and gait are normal or at baseline unless noted below. General: Alert, cooperative, no distress, appears stated age Head: Normocephalic, without obvious abnormality, atraumatic Eyes: sclera anicteric Ears: no obvious hearing deficit Skin: Warm and dry Abdomen: Soft, non-tender, no masses, no organomegaly Extremities normal, atraumatic, no cyanosis or edema MATERIAL HANDLER: uterus straight retroverted, cervix WNL IUD Insertion Performed by: Heidi Main DO Authorized by: Heidi Main DO Procedure: IUD removal and insertion Consent obtained by patient, parent, or legal power of trust and estates attorney - including discussion of procedure risks and benefits, patient questions answered, and patient education provided: yes Reason for removal: patient request Strings visualized: yes Cervix cleaned with: iodopovidone IUD grasped by forceps: yes IUD removed: yes Removed without complications: yes IUD intact: yes Pelvic exam performed: yes Speculum placed in vagina: yes Cervix cleaned and prepped: yes Tenaculum/Allis/Ring Forceps applied to cervix: yes Anesthesia used: no Uterus sound depth (cm): 6.5 IUD inserted without complications: yes OSM: 52 mg Levonorgestrel 20 MCG/DAY Strings trimmed to (cm): 4 Patient tolerated procedure well: yes Intended removal date: 8 years Diagnoses and all orders for this visit: Encounter for IUD removal and reinsertion - POCT , urine manually resulted - Levonorgestrel intrauterine device 52 mg Other orders - IUD Insertion The patient presents today for Mirena IUD insertion. Previous Mirena IUD removed wihtout difficulty. The waiver/consent was signed. The IUD was inserted without difficulty. The patient tolerated the procedure well without incident. She was advised to maintain pelvic rest x 24 hours. The patient is to call the office with any heavy vaginal bleeding/severe pelvic pain/ foul smelling vaginal discharge/fever. Will have patient return in 4 weeks for an IUD check. ICD-10-CM 1. Encounter for IUD removal and reinsertion Z30.433 POCT , urine manually resulted Levonorgestrel intrauterine device 52 mg documented in this encounter [facility] 10-27-2023 History of Present illness Narrative Images from the original note were not included. Heidi Main D.O. Obstetrics and Gynecology Patient: Cheko Berger : 1980 (43 y.o.) Yearly Wellness Exam Date: 10/27/2023 Reason for Visit - Chief Complaint Patient presents with Gynecologic Exam Denies concerns. Pt would like to discuss IUD, Pt is due for removal this year. Denies bowel/bladder/breast concerns. LMP 10/07/23 menses regular w/ IUD Visit Vitals Smoking Status Never No Known Allergies History of Present Illness, Associated Treatments and Results - OB History Para Term AB Living 2 2 2 0 0 2 SAB IAB Ectopic Multiple Live Births 0 0 0 0 2 # Outcome Date GA Lbr Estevan/2nd Weight Sex Type Anes PTL Lv 2 Term 1 Term Obstetric Comments Pap smear 10/21/22 wnl, Mammogram 10/19/23 wnl @ [facility] Review of Systems - General: Chills denies. Allergy/Immunology: Rash Denies. ENT: Denies Difficulty swallowing. Endocrine: Denies Cold intolerance denies. Heat intolerance denied. Respiratory: Denies Chest pain denies. Shortness of breath denies. Breast: Denies Bloody nipple discharge denies. Breast lump denies. Cardiovascular: Denies Chest pain. Gastrointestinal: Abdominal pain denies. Blood in stool denies. Hematology: Easy bruising denies. Prolonged bleeding denies. Women Only: Breast lump denies. Vaginal bleeding between periods is denied. Vaginal discharge/itching denied. Genitourinary: Blood in urine denies. Painful urination denies. Incontinence denies. Skin: Hair changes. Neurologic: Seizures denied. Stroke denies. Psychiatric: Anxiety denies. Depressed mood denies. Medication Documentation Review Audit Reviewed by Ana Deal MA (Die Engraving Supervisor) on 10/27/23 at 1301 Medication Order Taking? Sig Documenting Provider Last Dose Status Levonorgestrel (Mirena, 52 MG,) 20 MCG/DAY intrauterine device [id number] Mirena (52 MG) Historical Provider, Active History reviewed. No pertinent past medical history. Past Surgical History: Procedure Laterality Date INTRAUTERINE DEVICE INSERTION 2015 Mirena VAGINAL DELIVERY x2 Family History Problem Relation Name Age of Onset Heart disease Mother Physical Exam - General appearance, mentation, extraocular movements, facial strength and movement, hearing, upper and lower extremity strength and tone, sensation to gross testing, coordination, and gait are normal or at baseline unless noted below. General Examination: GENERAL APPEARANCE: alert oriented well developed, well nourished. HEAD: normocephalic atraumatic. EYES: sclera anicteric. EARS: no obvious hearing deficit. SKIN: warm and dry. HEART: regular rate and rhythm. LUNGS: clear to auscultation bilaterally. CHEST: axillary nodes grossly normal. BREASTS: no masses palpable bilaterally, normal nipples bilaterally. ABDOMEN: soft, nontender, nondistended, no masses palpable. BACK: no costovertebral angle tenderness, no obvious scoliosis/kyphosis. FEMALE GENITOURINARY: normal vaginal mucosa, cervix absent of lesions, nontender, IUD strings visible, uterus AV, mobile, ovaries nonpalpable and nontender. EXTREMITIES: no edema. NEUROLOGIC: alert and oriented. PSYCH: cooperative with exam. Diagnoses and all orders for this visit: Encounter for gynecological examination without abnormal finding Screening for malignant neoplasm of cervix - SENDOUT TEST MISCELLANEOUS [facility] Encounter for screening mammogram for breast cancer - Bilateral screening mammogram with tomosynthesis; Future Pap, pelvic and breast exam completed. Findings of today's exam discussed with the patient. Continue MSBE. Ca/Vit D recommendations reviewed with the patient. The patient is to contact the office with any changes to her gynecological condition. The patient is to return in 1 year or as needed Patient requesting removal and reinsertion of Mirena IUD- will place prior authorization ICD-10-CM 1. Encounter for gynecological examination without abnormal finding Z01.419 2. Screening for malignant neoplasm of cervix Z12.4 3. Encounter for screening mammogram for breast cancer Z12.31 documented in this encounter [facility] 09-07-2022 Hospital Discharge instructions Patient Education 09/07/2022 19:00:50 Contact Dermatitis, [id number] Contact Dermatitis Dermatitis is redness, soreness, and swelling (inflammation) of the skin. Contact dermatitis is a reaction to something that touches the skin. There are two types of contact dermatitis: Irritant contact dermatitis. This happens when something bothers (irritates) your skin, like soap. Allergic contact dermatitis. This is caused when you are exposed to something that you are allergic to, such as poison yvonne. What are the causes? Common causes of irritant contact dermatitis include: ?Makeup. ?Soaps. ?Detergents. ?Bleaches. ?Acids. ?Metals, such as nickel. Common causes of allergic contact dermatitis include: ?Plants. ?Chemicals. ?Jewelry. ?Latex. ?Medicines. ?Preservatives in products, such as clothing. What increases the risk? Having a job that exposes you to things that bother your skin. Having asthma or eczema. What are the signs or symptoms? Symptoms may happen anywhere the irritant has touched your skin. Symptoms include: Dry or flaky skin. Redness. Cracks. Itching. Pain or a burning feeling. Blisters. Blood or clear fluid draining from skin cracks. With allergic contact dermatitis, swelling may occur. This may happen in places such as the eyelids, mouth, or genitals. How is this treated? This condition is treated by checking for the cause of the reaction and protecting your skin. Treatment may also include: ?Steroid creams, ointments, or medicines. ?Antibiotic medicines or other ointments, if you have a skin infection. ?Lotion or medicines to help with itching. ?A bandage (dressing). Follow these instructions at home: Skin care Moisturize your skin as needed. Put cool cloths on your skin. Put a baking soda paste on your skin. Stir water into baking soda until it looks like a paste. Do not scratch your skin. Avoid having things rub up against your skin. Avoid the use of soaps, perfumes, and dyes. Medicines Take or apply [id number] and prescription medicines only as told by your doctor. If you were prescribed an antibiotic medicine, take or apply it as told by your doctor. Do not stop using it even if your condition starts to get better. Bathing Take a bath with: ?Epsom salts. ?Baking soda. ?Colloidal oatmeal. Bathe less often. Bathe in warm water. Avoid using hot water. Bandage care If you were given a bandage, change it as told by your doctor. Wash your hands with soap and water before and after you change your bandage. If soap and water are not available, use hand specialist physicians. General instructions Avoid the things that caused your reaction. If you do not know what caused it, keep a journal. Write down: ?What you eat. ?What skin products you use. ?What you drink. ?What you wear in the area that has symptoms. This includes jewelry. Check the affected areas every day for signs of infection. Check for: ?More redness, swelling, or pain. ?More fluid or blood. ?Warmth. ?Pus or a bad smell. Keep all follow-up visits as told by your doctor. This is important. Contact a doctor if: You do not get better with treatment. Your condition gets worse. You have signs of infection, such as: ?More swelling. ?Tenderness. ?More redness. ?Soreness. ?Warmth. You have a fever. You have new symptoms. Get help right away if: You have a very bad headache. You have neck pain. Your neck is stiff. You throw up (vomit). You feel very sleepy. You see red streaks coming from the area. Your bone or joint near the area hurts after the skin has healed. The area turns darker. You have trouble breathing. Summary Dermatitis is redness, soreness, and swelling of the skin. Symptoms may occur where the irritant has touched you. Treatment may include medicines and skin care. If you do not know what caused your reaction, keep a journal. Contact a doctor if your condition gets worse or you have signs of infection. This information is not intended to replace advice given to you by your health care provider. Make sure you discuss any questions you have with your health care provider. Document Revised: 11/23/2021 Document Reviewed: 11/23/2021 [employer] Patient Education 2022 [employer]. 09/07/2022 19:00:48 BMI for Adults BMI for Adults What is BMI? Body mass index (BMI) is a number that is calculated from a person's weight and height. BMI can help estimate how much of a person's weight is composed of fat. BMI does not measure body fat directly. Rather, it is an alternative to procedures that directly measure body fat, which can be difficult and expensive. BMI can help identify people who may be at higher risk for certain medical problems. What are BMI measurements used for? BMI is used as a screening tool to identify possible weight problems. It helps determine whether a person is obese, overweight, a healthy weight, or underweight. BMI is useful for: Identifying a weight problem that may be related to a medical condition or may increase the risk for medical problems. Promoting changes, such as changes in diet and exercise, to help reach a healthy weight. BMI screening can be repeated to see if these changes are working. How is BMI calculated? BMI involves measuring your weight in relation to your height. Both height and weight are measured, and the BMI is calculated from those numbers. This can be done either in [place] ([place] or metric measurements. Note that charts and online BMI calculators are available to help you find your BMI quickly and easily without having to do these calculations yourself. To calculate your BMI in [place] measurements: 1.Measure your weight in pounds (lb). 2.Multiply the number of pounds by 703. For example, for a person who weighs 180 lb, multiply that number by 703, which equals 126,540. 3.Measure your height in inches. Then multiply that number by itself to get a measurement called inches squared. For example, for a person who is 70 inches tall, the inches squared measurement is 70 inches x 70 inches, which equals 4,900 inches squared. 4.Divide the total from step 2 (number of lb x 703) by the total from step 3 (inches squared): 126,540 4,900 = 25.8. This is your BMI. To calculate your BMI in metric measurements: 1.Measure your weight in kilograms (kg). 2.Measure your height in meters (m). Then multiply that number by itself to get a measurement called meters squared. For example, for a person who is 1.75 m tall, the meters squared measurement is 1.75 m x 1.75 m, which is equal to 3.1 meters squared. 3.Divide the number of kilograms (your weight) by the meters squared number. In this example: 70 3.1 = 22.6. This is your BMI. What do the results mean? BMI charts are used to identify whether you are underweight, normal weight, overweight, or obese. The following guidelines will be used: Underweight: BMI less than 18.5. Normal weight: BMI between 18.5 and 24.9. Overweight: BMI between 25 and 29.9. Obese: BMI of 30 or above. Keep these notes in mind: Weight includes both fat and muscle, so someone with a muscular build, such as an athlete, may have a BMI that is higher than 24.9. In cases like these, BMI is not an accurate measure of body fat. To determine if excess body fat is the cause of a BMI of 25 or higher, further assessments may need to be done by a health care provider. BMI is usually interpreted in the same way for men and women. Where to find more information For more information about BMI, including tools to quickly calculate your BMI, go to these websites: Centers for Disease Control and Prevention: www.cdc.gov [place] Heart Association: www.heart.org National Heart, Lung, and Blood [place]: www.nhlbi.nih.gov Summary Body mass index (BMI) is a number that is calculated from a person's weight and height. BMI may help estimate how much of a person's weight is composed of fat. BMI can help identify those who may be at higher risk for certain medical problems. BMI can be measured using Welsh measurements or metric measurements. BMI charts are used to identify whether you are underweight, normal weight, overweight, or obese. This information is not intended to replace advice given to you by your health care provider. Make sure you discuss any questions you have with your health care provider. Document Revised: 10/31/2019 Document Reviewed: 09/07/2019 [employer] Patient Education 2022 [employer]. Follow Up Care 09/07/2022 17:53:34 With:SUHA ROWLAND MD [facility] Address: [address] [place] [address]- When: Unknown [facility] 05-03-2022 Evaluation note Encounter Date Diagnosis Assessment Notes Apr, Cervical disc disease (ICD-10 - M50.90) [place] [employer] Other 03-07-2023 Evaluation note* Encounter Date Diagnosis Assessment Notes Treatment Notes Treatment Clinical Notes Apr, Right cervical radiculopathy (ICD-10 - M54.12) [facility] [employer] Other 01-25-2023 Evaluation note* Encounter Date Diagnosis Assessment Notes Treatment Notes Treatment Clinical Notes Feb, Right cervical radiculopathy (ICD-10 - M54.12) Order given to patient for physical therapy. She has been doing home stretches without much improvement -could benefit from passive and active formal therapy Feb, Situational stress (ICD-10 - F43.9) Prescription given to patient for something that has helped other patients with mood and tearfulness. She states she might fill it now but not take it until later in the school year when her daughter reaches graduation. [employer] Other Evaluation + Plan note No data available for this section [facility] Evaluation noteNo InformationNort [employer] Other Evaluation note* Diagnosis Onset Date Resolution Status Bronchitis [facility] Work Phone: Evaluation note* Diagnosis Encounter for IUD removal and reinsertion [facility] Diagnosis Intrauterine device surveillance documented [facility] this [facility] Diagnosis Encounter for gynecological examination without abnormal finding Screening for malignant neoplasm of cervix Screening for malignant neoplasm of the cervix Encounter for screening mammogram for breast cancer documented [facility] this [facility] N[facility]ative - Reported* Type Description Date Medical History Abnormal mammogram of left brejed t Medical History Pneumonia due to Coronavirus dis ease 2018 Medical History COVID-19 [employer] Other Progress note No data available for this section [facility] Reason for Referral Reason *Waiting for appt Last OV, MRI result and PT notes. Thank you. Diagnosis 1 Cervical disc diseas e (M50.90) Referral Organization [facility] Desirae larsen Referring Provider First Name Suha Referring Provider Last Name Janett Referring Provider Specialty Family Medi cine Referred Organization [facility] Neurosurgery B owen Referred Provider Allyn Franks Referred Address [address] [place], [place],[address] Referred Provider Specialty Neurological Surgery Referral Priority Routine General Notes Heidi Mccracken 02:16:13 PM >received today sent P2P Summary Purpose Family History Relationship Condition Age at Onset Recorded Date/T aj Not Specified Heart disease Unknown Advance Directives Advance Directive Response Recorded Date/ Time Advance Directives No May 31, 024 9:57am Chief Complaint and Reason for Visit Chief Complaint Sinuses, Cough Reason for Visit Bronchitis Additional Source Comments REASON FOR VISIT (unrecogniz ed section and content) Reason Comments Procedure Pt presents for Meliza na IUD replacement. Consents signed, UPT collected-Neg, Denies iodine allergy. Pt took ibuprofen. Specialty Diagnoses / Procedures Referred By Joselito tapia Referred To Contact Obstetrics and Gynecology Diagnoses Encounter for removal of intrauterine contraceptive device Encounter for insertion of intrauterine contraceptive device Procedures ID REMOVAL INTRAUTERINE DEVICE IUD ID INSERTION INTRAUTERINE DEVICE IUD ID LEVONORGESTREL IU 52MG 5 YR Heidi Main, DO [address] [place] [address] Phone: tel: fax: Heidi Main, DO [address] [place] [address] Phone: tel: fax: Referral ID Status Reason Start Date Expiration Date V isits Requested Visits Authorized [id number] Closed Perform Procedure 10/27/2023 04/24/2024 1 1 Reason Comments Follow-up Pt presents for IUD check. Mirena replacement 12/20/23. Denies vaginal bleeding/spotting. Denies bowel/bladder concerns. Denies pelvic pain/cramping. Denies problems with intercourse. Reason Comments Gynecologic Exam Denies concerns. Pt would like to discuss IUD, Pt is due for removal this year. Denies bowel/bladder/breast concerns. LMP 10/07/23 menses regular w/ IUD INFORMATION SOURCE (unrecogn ized section and content) DATE CREATED AUTHOR 06/05/2022 [facility] DATE CREATED AUTHOR AUTHOR'S ORGANIZ ATION 09/08/2022 [facility] DATE CREATED AUTHOR AUTHOR'S ORGANIZ ATION 12/21/2023 [facility] Patient Care team informatio n (unrecognized section and content) Team Status: Active Member Role Status Dates Suha Rowland MD Primary Care Provider Active Team Status: Inactive Member Role Status Dates Suha Rowland MD Primary Care Provider Active Start: June 01, 2023 End: June 01, 2023 Najma Romero APRN [employer]-C Attending Provider Act royal Start: June 01, 2023 End: June 01, 2023 [employer] Relationship Specialty Start Date End Date Suha Rowland MD [address] [place] [id number] PCP - General Family Medicine 10/21/22 [employer] Relationship Specialty Start Date End Date Suha Rowland MD [address] [place] [id number] PCP - General Family Medicine 10/21/22 [employer] Packer Relationship Specialty Start Date End Date Suha Rowland MD [address] [place] [id number] PCP - General Family Medicine 10/21/22 Goals (unrecognized section and content) Goals may be documented in a n alternate section FOR RECORDS PERTAINING TO PATIENTS WHO ARE OR HAVE BEEN ENROLLED IN A CHEMICAL DEPENDENCY/SUBSTANCEABUSE PROGRAM, SOME INFORMATION MAY BE OMITTED. This clinical summary was aggregated from multiple sources. Caution should be exercised in using it in the provision of clinical care. This summary normalizes information from multiple sources, and as a consequence, information in this document may materially change the coding, format and clinical context of patient data. In addition, data may be omitted in some cases. CLINICAL DECISIONS SHOULD BE BASED ON THE PRIMARY CLINICAL RECORDS. [employer] [facility]. provides no warranty or guarantee of the accuracy or completeness of information in this document.
== END 2024-10-24 13:31 | disposition home or self-care (01) ==
LOC: MAMMO 13:30
PROVIDERS: PCP Family Medicine; Visit Provider Obstetrics & Gynecology
DX: Z12.31 Encounter for screening mammogram for malignant neoplasm of breast (principal); Z80.3 Family history of malignant neoplasm of breast; Z80.0 Family history of malignant neoplasm of digestive organs; Z80.7 Family history of other malignant neoplasms of lymphoid, hematopoietic and related tissues
CPT/HCPCS: 77063; 77067